=== PATIENT | female | born 1995 | race Caucasian/White ===

== ENCOUNTER 2020-09-28 14:37 | Inpatient (IN) | payer OTHER ==
[~2020-09-28] VITALS: Ht 172.7 cm; Wt 112.2 kg
[2020-09-29] MEDS ORDERED: NEWBORN KIT ONE (09:24)
[2020-09-29] MEDS ORDERED: OXYTOCIN 30U/ 0.9% NaCL 500ML 500 ML ONE (09:24)
[2020-09-29] MEDS ORDERED: CALCIUM CARBONATE 500 MG TAB.CHEW PO PRN (09:30)
[2020-09-29] MEDS ORDERED: FENTANYL PF 100 MCG/2ML IV PRN (09:30)
[2020-09-29] MEDS ORDERED: TERBUTALINE 1 MG/ML, 1ML IVPush PRN (09:30)
[2020-09-29] MEDS ORDERED: D5%-LACTATED RINGERS 1,000 ML IV SCH (09:30)
[2020-09-29] MEDS ORDERED: OXYTOCIN 30U/ 0.9% NaCL 500ML 500 ML IV ONE (09:30)
[2020-09-29] MEDS ORDERED: OXYTOCIN 30U/ 0.9% NaCL 500ML 500 ML IV PRN (09:30)
[2020-09-29] MEDS ORDERED: METOCLOPRAMIDE 5 MG/ML, 2ML IVPush PRN (09:30)
[2020-09-29] MEDS ORDERED: SODIUM CITRATE/CITRIC ACID 30 ML UDC PO PRN (09:30)
[2020-09-29] MEDS ORDERED: ONDANSETRON 2MG/ML, 2ML IVPush PRN (09:30)
[2020-09-29] MEDS ORDERED: LACTATED RINGERS 1,000 ML IV SCH ×2 (09:30→17:00)
[2020-09-29] MEDS ORDERED: TERBUTALINE 1 MG/ML, 1ML SQ PRN (09:30)
[2020-09-29] MEDS ORDERED: FENTANYL PF 100 MCG/2ML IVPush PRN (09:30)
[2020-09-29 10:15] LABS: BASOPHILS % (AUTO) 0 % (0-1); EOSINOPHILS % (AUTO) 1 % (1-7); LYMPHOCYTES % (AUTO) 19 % (22-44); MEAN CORPUSCULAR HEMOGLOBIN 25.2 pg (27.0-34.8); MEAN CORPUSCULAR HGB CONC 32.8 g/dL (32.4-35.8); MEAN PLATELET VOLUME 11.3 fL (7.4-10.4); MONOCYTES % (AUTO) 6 % (2-9); NEUTROPHILS % (AUTO) 74 % (42-75); PLATELET COUNT 157 x10^3/uL (130-400); RED BLOOD COUNT 3.76 x10^6/uL (3.82-5.3); RED CELL DISTRIBUTION WIDTH 14.7 % (9.6-15.2)
[2020-09-29 14:25] LABS: ALANINE AMINOTRANSFERASE 12 U/L (12-78); ALBUMIN 2.1 g/dL (3.4-5.0); ANION GAP 8 mmol/L (5-15); CALCIUM 8.2 mg/dL (8.5-10.1); CHLORIDE 110 mmol/L (98-107); CREATININE 0.53 mg/dL (0.55-1.02)
[2020-09-29 14:28] LABS: ALKALINE PHOSPHATASE 151 U/L (45-117); BILIRUBIN,TOTAL 0.2 mg/dL (0.2-1.0); TOTAL PROTEIN 6.5 g/dL (6.4-8.2)
[2020-09-29] MEDS ORDERED: BUPIVACAINE 0.25% ONE (16:17)
[2020-09-29] MEDS ORDERED: FENTANYL/BUPIV./NS/PF 250 ML EPIDCONT ONE (16:17)
[2020-09-29] MEDS ORDERED: LIDOCAINE/PF 1.5% EPI 1:200K, 10 ML ONE (16:20)
[2020-09-29] MEDS ORDERED: LIDOCAINE/MPF 2%-EPI 1:200K, 20 ML ONE (16:58)
[2020-09-29] MEDS ORDERED: FENTANYL/BUPIV./NS/PF 250 ML EPIDCONT SCH (17:00)
[2020-09-29] MEDS ORDERED: EPHEDRINE 50 MG/ML, 1ML IVPush PRN (17:00)
[2020-09-29] MEDS ORDERED: LACTATED RINGERS 1,000 ML IVBOLUS PRN (17:00)
[2020-09-29 18:55] LABS: TOTAL PROTEIN,URINE RANDOM < 5 mg/dL (0-12)
[2020-09-29] MEDS ORDERED: OXYcodone/APAP 5/325MG TABLET PO PRN ×2 (23:00)
[2020-09-29] MEDS ORDERED: DIPH,PERTUSS(ACELL),TET VAC/PF NC IM-VACC PRN (23:00)
[2020-09-29] MEDS ORDERED: SIMETHICONE 80 MG CHEW TAB PO PRN (23:00)
[2020-09-29] MEDS ORDERED: ONDANSETRON 2MG/ML, 2ML IV PRN (23:00)
[2020-09-29] MEDS ORDERED: ACETAMINOPHEN 325 MG TABLET PO PRN (23:00)
[2020-09-29] MEDS ORDERED: MISOPROSTOL 200 MCG TABLET PR PRN (23:00)
[2020-09-29] MEDS ORDERED: RHOGAM FROM BLOOD BANK 1 NOTE EA IM/IV ONE (23:00)
[2020-09-29] MEDS ORDERED: MAGNESIUM HYDROXIDE 8%, 30ML UDC PO PRN (23:00)
[2020-09-29] MEDS ORDERED: IBUPROFEN 600 MG TABLET PO PRN (23:00)
[2020-09-29] MEDS: OXYTOCIN 30U/ 0.9% NaCL 500ML 500 ML IV SCH (23:00)
[2020-09-30 00:30] VITALS: BP 131/80
[2020-09-30 03:45] VITALS: BP 132/82
[2020-09-30] MEDS: ACETAMINOPHEN 325 MG TABLET PO PRN ×2 (06:10→15:44)
[2020-09-30 06:44] LABS: BASOPHILS % (AUTO) 1 % (0-1); EOSINOPHILS % (AUTO) 0 % (1-7); LYMPHOCYTES % (AUTO) 15 % (22-44); MEAN CORPUSCULAR HEMOGLOBIN 25.1 pg (27.0-34.8); MEAN CORPUSCULAR HGB CONC 32.5 g/dL (32.4-35.8); MONOCYTES % (AUTO) 7 % (2-9); NEUTROPHILS % (AUTO) 77 % (42-75); PLATELET COUNT 147 x10^3/uL (130-400); RED BLOOD COUNT 3.55 x10^6/uL (3.82-5.3); RED CELL DISTRIBUTION WIDTH 14.7 % (9.6-15.2)
[2020-09-30 07:40] VITALS: BP 129/88
[2020-09-30] MEDS: PRENATAL VIT/IRON/FA 1 EACH TABLET PO SCH (08:02)
[2020-09-30] MEDS: DOCUSATE 100 MG CAPSULE PO PRN (08:02)
[2020-09-30] MEDS: OXYTOCIN 30U/ 0.9% NaCL 500ML 500 ML IV SCH ×2 (08:02→19:00)
[2020-09-30 11:50] VITALS: BP 119/76
[2020-09-30 16:00] VITALS: BP 132/86
[2020-09-30 20:00] VITALS: BP 132/89
[2020-10-01] MEDS: OXYTOCIN 30U/ 0.9% NaCL 500ML 500 ML IV SCH (05:00)
[2020-10-01 07:49] VITALS: BP 129/87
[2020-10-01] MEDS ORDERED: DOCU-131 PO (10:25)
[2020-10-01] MEDS ORDERED: IBUP-1222 PO (10:25)
[2020-10-01] MEDS ORDERED: FERR324T18 PO (10:27)
[2020-10-01] MEDS: PRENATAL VIT/IRON/FA 1 EACH TABLET PO SCH (12:09)
[2020-10-01] MEDS: DOCUSATE 100 MG CAPSULE PO PRN (12:09)
== END 2020-10-01 12:20 | disposition home or self-care (01) | DRG 806 ==
LOC: LDIP 09-29 09:16 → 2NW 09-30 00:45 → EDSTATUS 10-07 14:21
PROVIDERS: ADMIT Obstetrics & Gynecology; ATTEND Obstetrics & Gynecology
PROC: 10E0XZZ Delivery of Products of Conception, External Approach (ICD-10-PCS; principal; 2020-09-29)
PROC: 10907ZC Drainage of Amniotic Fluid, Therapeutic from Products of Conception, Via Natural or Artificial Opening (ICD-10-PCS; 2020-09-29)
PROC: 3E0R3BZ Introduction of Anesthetic Agent into Spinal Canal, Percutaneous Approach (ICD-10-PCS; 2020-09-29)
PROC: 00HU33Z Insertion of Infusion Device into Spinal Canal, Percutaneous Approach (ICD-10-PCS; 2020-09-29)
PROC: 10H07YZ Insertion of Other Device into Products of Conception, Via Natural or Artificial Opening (ICD-10-PCS; 2020-09-29)
PROC: 3E033VJ Introduction of Other Hormone into Peripheral Vein, Percutaneous Approach (ICD-10-PCS; 2020-09-29)
PROC: 10H07YZ Insertion of Other Device into Products of Conception, Via Natural or Artificial Opening (ICD-10-PCS; 2020-09-29)
PROC: 3E0234Z Introduction of Serum, Toxoid and Vaccine into Muscle, Percutaneous Approach (ICD-10-PCS; 2020-09-30)
DX: O40.3XX0 Polyhydramnios, third trimester, not applicable or unspecified (principal); N04.9 Nephrotic syndrome with unspecified morphologic changes; Z37.0 Single live birth; O26.893 Other specified pregnancy related conditions, third trimester; Z20.822 Contact with and (suspected) exposure to COVID-19; O99.892 Other specified diseases and conditions complicating childbirth; D50.9 Iron deficiency anemia, unspecified; O69.81X0 Labor and delivery complicated by cord around neck, without compression, not applicable or unspecified; O99.02 Anemia complicating childbirth; Z3A.38 38 weeks gestation of pregnancy; Z88.0 Allergy status to penicillin; Z88.2 Allergy status to sulfonamides; Z23 Encounter for immunization; Z67.41 Type O blood, Rh negative; Z22.8 Carrier of other infectious diseases
CPT/HCPCS: 36415; J7121; 80053; 82570; 84156; 85025; 85461; 86592; 86850; 86900; 86923; 87635; G0378; J2790; J3010; J2590; J7120